=== PATIENT | male | born 1965 | race Caucasian/White ===

== ENCOUNTER → 2017-07-13 | Outpatient (CLI) | payer OTHER ==
[~2017-07-13] MED LIST: ATOR40TA24 PO; FENO134C5 PO; FLU60SYR30 IM ONLY; GLIM2TAB43 PO; GLIM4TAB50 PO; KET10 PO; LISI-362 PO; LISI20TA29 PO; LISI5TAB25 PO; METF-420 PO; METF10002 PO; PER PO; PNEI IJ; SITA1TAB13 PO
[2017-07-13 08:18] LABS: PLATELET COUNT, AUTOMATED 171 K/uL (150-450)
== END ==
LOC: LAB 07:43
PROVIDERS: ATTEND Emergency Medicine
DX: E11.8 Type 2 diabetes mellitus with unspecified complications (principal)
CPT/HCPCS: 36415; 82040; 82247; 82310; 82374; 82435; 82465; 82565; 82947; 83036; 83718; 84075; 84132; 84153; 84155; 84295; 84443; 84450; 84460; 84478; 84520; 85025

== ENCOUNTER → 2017-08-10 | Outpatient (CLI) | payer OTHER ==
[~2017-08-10] MED LIST changes: +GOLYTE PO
== END ==
LOC: LAB 08:05
PROVIDERS: ATTEND Emergency Medicine
DX: I10 Essential (primary) hypertension (principal); R79.89 Other specified abnormal findings of blood chemistry
CPT/HCPCS: 36415; 81001; 82310; 82374; 82435; 82565; 82947; 84132; 84295; 84520

== ENCOUNTER 2017-09-14 02:45 | Day surgery (SDC) | payer OTHER ==
[~2017-09-14] VITALS: Ht 165.1 cm; Wt 95.3 kg
[~2017-09-14 02:45] MED LIST changes: +ASPI-1471 PO
[2017-09-14] MEDS ORDERED: PROPOFOL EMUL(*) 10MG/ML 20 ML 60 ML ONE (07:15)
[2017-09-14] MEDS ORDERED: LIDOCAINE MPF 1% 5 ML VIAL ONE (07:15)
[2017-09-14] MEDS ORDERED: NORMOSOL R SOLN(*) 1000 ML BAG 1,000 ML IV PRN (07:30)
[2017-09-14] MEDS ORDERED: LIDOCAINE/SOD BICARB 8.4% SYR ID ONE (07:30)
[2017-09-14 07:50] VITALS: BP 138/81
[2017-09-14 09:57] VITALS: BP 102/85
--- NOTE | 2017-09-14 10:01 | Short(Outpt) Discharge Summary ---
Discharge Summary Reason for Hosp/Final Diag: (1) Colon cancer screening Status: Chronic Hospital Course & Plan: Colonoscopy with polypectomy x1 completed without problems. Departure Discharge to: Home, Self Care Discharge Instructions Home Meds Active Scripts Peg/Electrolytes (GOLYTELY SOLUTION) 4,000 Ml Soln, 1 GAL PO ONCE, #1 GAL 0 Refills Prov:JEFFERY MAO MD 08/10/17 Fenofibrate,Micronized (FENOFIBRATE) 134 Mg Capsule, 134 MG PO QDAY, #90 CAPSULE 3 Refills Prov:MURTAZA CAMPO MD 08/09/17 Atorvastatin Calcium (LIPITOR) 40 Mg Tablet, 1 TAB PO QDAY, #90 TAB 3 Refills Prov:MURTAZA CAMPO MD 08/09/17 Glimepiride (GLIMEPIRIDE) 4 Mg Tablet, 4 MG PO BID, #60 TAB 11 Refills Prov:MURTAZA CAMPO MD 07/13/17 Metformin Hcl (METFORMIN HCL ER) 1,000 Mg Tab.er.24, 1 TAB PO QDAY, #30 TAB 11 Refills Prov:MURTAZA CAMPO MD 04/27/17 Reported Medications Lisinopril (LISINOPRIL) 10 Mg Tablet, 10 MG PO QDAY, TAB 09/07/17 Aspirin (ASPIR 81) 81 Mg Tablet.dr, 81 MG PO QDAY, TAB 09/07/17 Discontinued Scripts Lisinopril (LISINOPRIL) 20 Mg Tablet, 20 MG PO QDAY, #30 TAB 11 Refills Prov:MURTAZA CAMPO MD 07/13/17 Diet: Regular Activity: As Tolerated Special Instructions: Your colonoscopy was completed without any problems and your prep was excellent (Good Job!!). I removed a single polyp from your colon and it was sent to pathology. No other abnormalities were seen. My office will call you in the next week and let you know what the polyp is and when your next colonoscopy should be (either 5 or 10 years from now). JEFFERY MAO MD Sep 14, 2017 10:01
[2017-09-14 10:30] VITALS: BP 107/88
[2017-09-14 10:45] VITALS: BP 125/82
[2017-09-14 10:46] VITALS: BP 111/69
== END 2017-09-14 11:36 | disposition home or self-care (01) ==
LOC: OR 02:45
PROVIDERS: ATTEND Surgery
DX: Z12.11 Encounter for screening for malignant neoplasm of colon (principal); K63.5 Polyp of colon; K57.30 Diverticulosis of large intestine without perforation or abscess without bleeding; E11.9 Type 2 diabetes mellitus without complications
CPT/HCPCS: 00811; 36416; 45385; 82948; 88305; J2001; J2704

== ENCOUNTER → 2017-10-19 | Outpatient (CLI) | payer OTHER ==
[~2017-10-19] MED LIST changes: +BLOO1STR38 MC; -METF-420 PO; +METF-421 PO; +METF750T25 PO
== END ==
LOC: LAB 08:15
PROVIDERS: ATTEND Emergency Medicine
DX: E11.8 Type 2 diabetes mellitus with unspecified complications (principal)
CPT/HCPCS: 36415; 82310; 82374; 82435; 82565; 82947; 83036; 84132; 84295; 84520

== ENCOUNTER → 2017-11-07 | Outpatient (CLI) | payer OTHER ==
[~2017-11-07] MED LIST changes: +AMOX-559 PO; +BLOO-1037 MC
[2017-11-07 11:24] LABS: PLATELET COUNT, AUTOMATED 248 K/uL (150-450)
--- NOTE | 2017-11-07 13:24 | RADIOLOGY IMAGING REPORT ---
FACILITY: [facility] [place] PATIENT NAME: Harris Briceno : 1965 MR: [id number] V: [id number] EXAM DATE: ORDERING PHYSICIAN: JUSTINO GRAY TECHNOLOGIST: Location: [facility] Patient: Harris Briceno : 1965 Visit/Account:[id number] Date of Sevice: 11/07/2017 Exam type: CHEST PA AND LAT History: Fever cough for 6 days Comparison: None. Findings: Patient is made a limited inspiratory effort producing crowding the bronchovascular markings bilatera lly. There is no evidence of focal infiltrates, pleural effusions or pulmonary edema. Mild linear s tranding in the right lung base may represent atelectasis or scarring. There is no evidence of pneum othorax or pneumomediastinum. Cardiac silhouette is normal in size. IMPRESSION: 1. Hypoventilatory changes from a limited inspiratory effort Mild linear stranding in the right lung base may represent scarring or atelectasis. Report Dictated By: Skye Romo MD at 11/07/2017 1:19 PM Report E-Signed By: Skye Romo MD at 11/07/2017 1:21 PM WSN:[email or web address]
== END ==
LOC: LAB 11:03
PROVIDERS: ATTEND Nurse Practitioner Family
DX: R91.8 Other nonspecific abnormal finding of lung field (principal); R50.9 Fever, unspecified
CPT/HCPCS: 36415; 71046; 82040; 82247; 82310; 82374; 82435; 82565; 82947; 84075; 84132; 84155; 84295; 84450; 84460; 84520; 85025